=== PATIENT | male | born 1950 | race Caucasian/White ===

== ENCOUNTER 2021-01-17 16:25 | Emergency (ER) | payer OTHER ==
[2021-01-17] MEDS ORDERED: Lidocaine 1% w/Epinephrine 1:100K 20 ML VIAL ONE (16:56)
[2021-01-17] MEDS ORDERED: Boostrix 0.5 ML (Tdap) VIAL ONE (17:04)
== END 2021-01-17 17:46 | disposition home or self-care (01) ==
LOC: CSHERS 16:25
DX: S61.012A Laceration without foreign body of left thumb without damage to nail, initial encounter (principal); E11.9 Type 2 diabetes mellitus without complications; I10 Essential (primary) hypertension; Z23 Encounter for immunization; W26.9XXA Contact with unspecified sharp object(s), initial encounter
CPT/HCPCS: 12001; 90471; 90715

== ENCOUNTER 2025-08-27 18:17 | Emergency (ER) | payer OTHER ==
[2025-08-27] MEDS ORDERED: Acetaminophen 500 MG TAB ONE (19:17)
[2025-08-27] MEDS ORDERED: Lidocaine 1% (PF) 30 ML VIAL ONE (19:25)
== END 2025-08-27 20:51 | disposition home or self-care (01) ==
LOC: CSHERS 18:17
DX: S61.212A Laceration without foreign body of right middle finger without damage to nail, initial encounter (principal); S61.210A Laceration without foreign body of right index finger without damage to nail, initial encounter; I10 Essential (primary) hypertension; E11.9 Type 2 diabetes mellitus without complications; W23.1XXA Caught, crushed, jammed, or pinched between stationary objects, initial encounter
CPT/HCPCS: 12002; 99283; J2003